=== PATIENT | female | born 1980 | race Caucasian/White ===

== ENCOUNTER 2016-10-18 02:25 | Inpatient (IN) | payer MEDICAID, MEDICARE ==
[~2016-10-18] VITALS: Ht 170.2 cm; Wt 123.5 kg
[2016-10-18] MEDS ORDERED: HALOPERIDOL 5 MG TAB PO PRN (02:30)
[2016-10-18] MEDS ORDERED: ALU/MAG/SIM 30 ML UDC PO PRN (02:30)
[2016-10-18] MEDS ORDERED: LORAZEPAM 2 MG TAB PO PRN (02:30)
[2016-10-18] MEDS ORDERED: DIPHENHYDRAMINE 50 MG/ML VIAL IM PRN (02:30)
[2016-10-18] MEDS ORDERED: HALOPERIDOL 5 MG/ML VIAL IM PRN (02:30)
[2016-10-18] MEDS ORDERED: LORAZEPAM 2 MG/ML VIAL IM PRN (02:30)
[2016-10-18] MEDS ORDERED: DIPHENHYDRAMINE 50 MG CAP PO PRN (02:30)
[2016-10-18] MEDS ORDERED: MAG HYDROX 30 ML UDC PO PRN (02:30)
[2016-10-18 03:45] VITALS: BP_SYST 169; RESP 18; TEMP 98.4
[2016-10-18 03:47] VITALS: BMI 42.6
[2016-10-18] MEDS: ACETAMINOPHEN 325 MG TAB PO PRN ×2 (04:10→13:24)
[2016-10-18] MEDS ORDERED: *PINK BRACELET XX ONE (07:00)
[2016-10-18] MEDS: *HOME MEDS KEPT IN PHARMACY XX SCH ×2 (07:23→10:21)
[2016-10-18 08:00] VITALS: BP_SYST 145; RESP 16; TEMP 98.5
[2016-10-18] MEDS: Ibuprofen 800 MG TAB PO SCH ×3 (10:39→21:00)
[2016-10-18 20:30] VITALS: RESP 18
[2016-10-18] MEDS: NEB-BUDESONIDE 0.5 MG INH SCH (20:32)
[2016-10-18] MEDS: NEB-BROVANA 15 MCG/2 ML INH SCH (20:32)
[2016-10-18] MEDS: PANTOPRAZOLE 40 MG TAB PO SCH (20:51)
[2016-10-18] MEDS: CALCIUM /VIT D 600 MG TAB PO SCH (20:51)
[2016-10-18] MEDS: LORATADINE 10 MG TAB PO SCH (20:51)
[2016-10-18] MEDS: TRAZODONE 50 MG TAB PO PRN (23:08)
[2016-10-19] MEDS: *HOME MEDS KEPT IN PHARMACY XX SCH ×2 (07:15→21:50)
[2016-10-19 08:10] VITALS: BP_SYST 148; RESP 20; TEMP 97.2
[2016-10-19] MEDS: Ibuprofen 800 MG TAB PO SCH ×3 (08:45→21:59)
[2016-10-19] MEDS: ACETAMINOPHEN 325 MG TAB PO PRN (13:15)
[2016-10-19] MEDS: CITALOPRAM 20 MG TAB PO SCH (13:17)
[2016-10-19 19:11] VITALS: BP_SYST 151; RESP 18; TEMP 98.2
[2016-10-19] MEDS: NEB-BROVANA 15 MCG/2 ML INH SCH (21:00)
[2016-10-19] MEDS: NEB-BUDESONIDE 0.5 MG INH SCH (21:00)
[2016-10-19] MEDS: PANTOPRAZOLE 40 MG TAB PO SCH (21:54)
[2016-10-19] MEDS: CALCIUM /VIT D 600 MG TAB PO SCH (21:54)
[2016-10-19] MEDS: LORATADINE 10 MG TAB PO SCH (21:54)
[2016-10-19] MEDS: TRAZODONE 50 MG TAB PO PRN (22:00)
[2016-10-20 07:00] VITALS: BP_SYST 156; RESP 18; TEMP 98
[2016-10-20] MEDS: *HOME MEDS KEPT IN PHARMACY XX SCH ×2 (08:00→20:00)
[2016-10-20] MEDS: Ibuprofen 800 MG TAB PO SCH ×3 (09:05→22:31)
[2016-10-20] MEDS: CITALOPRAM 20 MG TAB PO SCH (09:05)
[2016-10-20] MEDS ORDERED: MELOXICAM 7.5 MG TAB PO ONE (12:20)
[2016-10-20] MEDS ORDERED: NEB-ALBUTEROL 2.5 MG/3 ML INH PRN (12:45)
[2016-10-20] MEDS ORDERED: DEXAMETHASONE 4 MG TAB PO ONE (13:00)
[2016-10-20] MEDS ORDERED: DEXAMETHASONE 4 MG TAB PO SCH (13:00)
[2016-10-20] MEDS: amLODIPine 5 MG TAB PO SCH (15:45)
[2016-10-20] MEDS: PANTOPRAZOLE 40 MG TAB PO SCH ×2 (15:45→21:33)
[2016-10-20] MEDS: CALCIUM /VIT D 600 MG TAB PO SCH ×2 (15:45→21:33)
[2016-10-20] MEDS: LORATADINE 10 MG TAB PO SCH ×2 (15:45→21:33)
[2016-10-20 19:03] VITALS: BP_SYST 152; RESP 18; TEMP 98.3
[2016-10-20] MEDS: DEXAMETHASONE 4 MG TAB PO SCH (21:44)
[2016-10-20] MEDS: NEB-BROVANA 15 MCG/2 ML INH SCH (23:33)
[2016-10-20] MEDS: NEB-BUDESONIDE 0.5 MG INH SCH (23:33)
[2016-10-20] MEDS: TRAZODONE 50 MG TAB PO PRN (23:40)
[2016-10-21] MEDS: DEXAMETHASONE 4 MG TAB PO SCH ×2 (02:29→08:45)
[2016-10-21] MEDS: PANTOPRAZOLE 40 MG TAB PO SCH (06:15)
[2016-10-21] MEDS: *HOME MEDS KEPT IN PHARMACY XX SCH (08:00)
[2016-10-21] MEDS: CITALOPRAM 20 MG TAB PO SCH (08:45)
[2016-10-21] MEDS: CALCIUM /VIT D 600 MG TAB PO SCH (08:45)
[2016-10-21] MEDS: LORATADINE 10 MG TAB PO SCH (08:45)
[2016-10-21] MEDS: amLODIPine 5 MG TAB PO SCH (08:46)
[2016-10-21] MEDS: Ibuprofen 800 MG TAB PO SCH (08:46)
[2016-10-21 08:53] VITALS: BP_SYST 156; RESP 18; TEMP 97.5
[2016-10-21] MEDS ORDERED: MELOXICAM 7.5 MG TAB PO SCH (09:00)
[2016-10-21 10:27] VITALS: BP_SYST 156; RESP 18; TEMP 97.5
[2016-10-22] MEDS ORDERED: DEXAMETHASONE 4 MG TAB PO SCH (09:00)
== END 2016-10-21 13:33 | disposition home or self-care (01) | DRG 881 ==
LOC: ENRESERVTM → ENRESERVDT → PSY 03:32
PROVIDERS: ADMIT Psychiatry & Neurology Psychiatry; ATTEND Psychiatry & Neurology Psychiatry
CPT/HCPCS: 80053; 85025; 94640